=== PATIENT | female | born 1945 | race Hispanic/Latino ===

== ENCOUNTER → 2017-12-22 | Outpatient (CLI) | payer OTHER ==
[~2017-12-22] MED LIST: CALCIUM/MAG/ZINC PO; CHOL200074 PO; FLUT1AER IH; MULT-578 PO; OXYM-30 NS; RESTORE PO; ST.300CA PO; TIOT18CA3 IH; UMEC62.5 IH; VITA1CAP17 PO
== END | disposition home or self-care (01) ==
LOC: RAH 07:58
PROVIDERS: ATTEND Otolaryngology Plastic Surgery within the Head & Neck
DX: K21.9 Gastro-esophageal reflux disease without esophagitis (principal); R13.10 Dysphagia, unspecified
CPT/HCPCS: 74220

== ENCOUNTER → 2018-07-15 | Outpatient (CLI) | payer OTHER ==
[~2018-07-15] MED LIST changes: +IOHEXOL 350 MG/ML 100ML INFUS..BTL IV ONE
== END | disposition home or self-care (01) ==
LOC: RAH 09:48
PROVIDERS: ATTEND Family Medicine
DX: N20.0 Calculus of kidney (principal); K43.9 Ventral hernia without obstruction or gangrene; E27.8 Other specified disorders of adrenal gland; J44.9 Chronic obstructive pulmonary disease, unspecified; Z72.89 Other problems related to lifestyle
CPT/HCPCS: 71270; 74178; Q9967

== ENCOUNTER 2018-11-07 10:53 | Emergency (ER) | payer OTHER ==
[~2018-11-07 10:53] MED LIST changes: -IOHEXOL 350 MG/ML 100ML INFUS..BTL IV ONE; -MULT-578 PO; +[UNRECOGNIZED DRUG - CODE] PO
[2018-11-07 12:02] LABS: BASOPHILS % (AUTO) 0.4 % (0.0-5.0); EOSINOPHILS % (AUTO) 1.8 % (0.0-8.0); HEMATOCRIT 43.1 % (36-48); LYMPHOCYTES % (AUTO) 17.5 % (21.0-51.0); MEAN CORPUSCULAR HEMOGLOBIN 28.3 pg (27.0-33.0); MEAN CORPUSCULAR HGB CONC 32.4 g/dL (32.0-36.0); MEAN CORPUSCULAR VOLUME 87.3 fL (79-99); MONOCYTES % (AUTO) 11.5 % (3.0-13.0); NEUTROPHILS % (AUTO) 68.8 % (40.0-77.0); PLATELET COUNT (AUTO) 248 K/uL (130-400); RED BLOOD CELL COUNT(AUTO) 4.94 MIL/uL (4.00-5.50); RED CELL DISTRIBUTION WIDTH 13.4 % (11.0-15.5); WHITE BLOOD COUNT (AUTO) 6.1 K/uL (4.8-10.8)
[2018-11-07 12:11] LABS: CREATININE 0.7 mg/dL (0.5-1.5)
[2018-11-07 12:16] LABS: ALBUMIN 3.2 g/dL (3.5-5.0); BILIRUBIN,TOTAL 0.4 mg/dL (0.2-1.0); TOTAL PROTEIN, SERUM 8.1 g/dL (6.0-8.3)
[2018-11-07 13:16] LABS: APPEARANCE,URINE Clear (CLEAR); BILIRUBIN,URINE Negative (NEGATIVE); COLOR,URINE Yellow (YELLOW); GLUCOSE, URINE (UA) Negative (NEGATIVE); KETONES,URINE Negative (NEGATIVE); LEUKOCYTE ESTERASE ,URINE Negative (NEGATIVE); NITRATE,URINE Negative (NEGATIVE); OCCULT BLOOD,URINE Small (NEGATIVE); PROTEIN,URINE Negative (NEGATIVE); UROBILINOGEN,URINE 0.2 mg/dL (0.2-1.0)
[2018-11-07 13:33] LABS: ERYTHROCYTE SEDIMENTATION RATE 51 MM/HR (0-30)
[2018-11-07 14:07] LABS: BACTERIA,URINE Rare /HPF (None Seen); RBC,URINE 0-1 /HPF (0-1); SQUAMOUS EPITHELIAL CELL,UR Few /HPF (0-2); WBC,URINE None Seen /HPF (0-1)
[2018-11-07] MEDS ORDERED: DEXAMETHASONE SOD PHOSPHATE 4 MG/ML 1ML VIAL ONE (15:13)
[2018-11-07] MEDS ORDERED: KETOROLAC TROMETHAMINE 15MG/ML ONE (15:13)
== END 2018-11-07 16:22 | disposition home or self-care (01) ==
LOC: EDH 10:53
DX: G89.29 Other chronic pain (principal); M25.561 Pain in right knee; M25.562 Pain in left knee; M25.511 Pain in right shoulder; M25.512 Pain in left shoulder; M25.551 Pain in right hip; M25.552 Pain in left hip; M25.542 Pain in joints of left hand; M25.541 Pain in joints of right hand; J44.9 Chronic obstructive pulmonary disease, unspecified; Z90.49 Acquired absence of other specified parts of digestive tract; Z90.710 Acquired absence of both cervix and uterus; Z87.891 Personal history of nicotine dependence
CPT/HCPCS: 36415; 80053; 81001; 85025; 85651; 96372; 96374; 99283; J1100; J1885

== ENCOUNTER 2018-11-16 14:47 | Emergency (ER) | payer OTHER ==
[2018-11-16 15:21] LABS: APPEARANCE,URINE Clear (CLEAR); BILIRUBIN,URINE Negative (NEGATIVE); COLOR,URINE Yellow (YELLOW); GLUCOSE, URINE (UA) 250 mg/dL (NEGATIVE); KETONES,URINE Negative (NEGATIVE); LEUKOCYTE ESTERASE ,URINE Negative (NEGATIVE); NITRATE,URINE Negative (NEGATIVE); OCCULT BLOOD,URINE Negative (NEGATIVE); PROTEIN,URINE Negative (NEGATIVE)
[2018-11-16 15:42] LABS: AMORPHOUS SEDIMENT,UR Rare /LPF (None Seen); BACTERIA,URINE Rare /HPF (None Seen); RBC,URINE 0-1 /HPF (0-1); SQUAMOUS EPITHELIAL CELL,UR Few /HPF (0-2); WBC,URINE 0-1 /HPF (0-1)
[2018-11-16 15:43] LABS: YEAST,URINE BUDDING Rare /HPF (None Seen)
[2018-11-16 15:58] LABS: BASOPHILS % (AUTO) 0.3 % (0.0-5.0); EOSINOPHILS % (AUTO) 0.5 % (0.0-8.0); HEMATOCRIT 42.6 % (36-48); MEAN CORPUSCULAR HGB CONC 33.1 g/dL (32.0-36.0); MEAN CORPUSCULAR VOLUME 87.4 fL (79-99); MONOCYTES % (AUTO) 10.9 % (3.0-13.0); NEUTROPHILS % (AUTO) 77.3 % (40.0-77.0); PLATELET COUNT (AUTO) 227 K/uL (130-400); RED BLOOD CELL COUNT(AUTO) 4.87 MIL/uL (4.00-5.50); RED CELL DISTRIBUTION WIDTH 13.9 % (11.0-15.5); WHITE BLOOD COUNT (AUTO) 7.6 K/uL (4.8-10.8)
[2018-11-16 16:14] LABS: CREATININE 0.6 mg/dL (0.5-1.5); POTASSIUM 3.7 mmol/L (3.5-5.1)
[2018-11-16 16:18] LABS: ALBUMIN 3.2 g/dL (3.5-5.0); BILIRUBIN,TOTAL 0.3 mg/dL (0.2-1.0)
[2018-11-16] MEDS ORDERED: IOHEXOL-350 75 ML VIAL IV ONE (16:43)
[2018-11-16] MEDS ORDERED: MORPHINE SULFATE 4 MG/1ML SYG ONE (18:14)
[2018-11-16] MEDS ORDERED: ONDANSETRON HCL 4 MG/2 ML VIAL ONE (18:14)
== END 2018-11-16 19:12 | disposition home or self-care (01) ==
LOC: EDH 14:47
DX: K43.9 Ventral hernia without obstruction or gangrene (principal); J44.9 Chronic obstructive pulmonary disease, unspecified; Z90.49 Acquired absence of other specified parts of digestive tract; Z90.710 Acquired absence of both cervix and uterus
CPT/HCPCS: 36415; 74177; 80053; 81001; 83690; 84484; 85025; 93005; 96374; 96375; 99284; J2270; J2405; Q9967

== ENCOUNTER → 2019-01-27 | Outpatient (CLI) | payer OTHER | END | disposition home or self-care (01) | LOC: OIH 15:36 | PROVIDERS: ATTEND Internal Medicine | DX: M17.0 Bilateral primary osteoarthritis of knee (principal); M19.042 Primary osteoarthritis, left hand; M19.041 Primary osteoarthritis, right hand; M06.4 Inflammatory polyarthropathy | CPT/HCPCS: 73130; 73560 ==